=== PATIENT | female | born 1990 | race Caucasian/White ===

== ENCOUNTER 2019-06-22 10:14 | Emergency (ER) | payer SELFPAY | END 2019-06-22 10:55 | disposition home or self-care (01) | LOC: SCSER 10:14 | DX: K02.9 Dental caries, unspecified (principal); F17.210 Nicotine dependence, cigarettes, uncomplicated | CPT/HCPCS: 99282 ==

== ENCOUNTER 2021-10-08 18:32 | Emergency (ER) | payer OTHER, SELFPAY ==
[2021-10-08 19:46] LABS: Bacteria/HPF 4+ HPF (None Seen); Bilirubin Negative (Negative); Blood, Urine 2+ (Negative); Clarity Turbid (Clear); Glucose, Urine (Dipstick) Normal (Negative); Ketone, Urine 10 mg/dL (Negative); Leukocyte 75 Leu/uL (Negative); Mucous/LPF 1+ LPF (<2+); Nitrite 2+ (Negative); Protein, Urine (Dipstick) 70 mg/dL (Neg-Trace); Specific Gravity, Urine 1.021 (1.002-1.036); Urobilinogen Normal mg/dL (Less than 2); pH, Urine 5.5 (5.0-9.0)
[2021-10-08 19:51] LABS: Amphetamine Detected (NotDetected); Barbiturates Screen Not Detected (NotDetected); Benzodiazepine Screen Not Detected (NotDetected); Cocaine Metabolite Screen Not Detected (NotDetected); Methadone Not Detected (NotDetected); Methamphetamine Detected (NotDetected); Opiate Screen Not Detected (NotDetected); Oxycodone Screen Not Detected (NotDetected); Phencyclidine (PCP) Not Detected (NotDetected); THC/Cannabinoid Screen Detected (NotDetected); Tricyclic Screen Not Detected (NotDetected)
[2021-10-08 19:56] LABS: Hemoglobin 10.9 g/dL (12.0-16.0); Mean Corpuscular HGB CONC 31.8 g/dL (32.0-36.0); Mean Corpuscular Hemoglobin 29.5 pg (27.0-31.0); Mean Corpuscular Volume 92.7 fL (78.0-98.0); Mean Platelet Volume 7.3 fL (7.4-10.4); Platelet Count 448 thou/uL (130-400); RBC Distribution Width 15.9 % (11.5-14.5); Red Blood Cell (RBC) Count 3.69 mill/uL (4.20-5.40); White Blood Cell (WBC) Count 22.6 thou/uL (4.8-10.8)
[2021-10-08 19:58] LABS: BHCG - Serum Negative (NEGATIVE); Pregs Control Background? CLEAR/WHITE (CLR/WHITE); Pregs Control Bar Appear? YES (CONTROL BAR)
[2021-10-08 20:18] LABS: Acetaminophen Less than 6.0 mcg/mL (10.0-30.0); Alcohol 38 mg/dL (Less than 10); Magnesium 1.8 mg/dL (1.6-2.6); Salicylate Less than 8.0 mg/dL (15.0-30.0)
[2021-10-08 20:20] LABS: ALT (SGPT) 13 U/L (8-55); AST (SGOT) 19 U/L (5-34); Albumin 3.8 g/dL (3.5-5.0); Alkaline Phosphatase 80 U/L (40-110); Anion Gap 13 mmol/L (10-20); BUN (Urea Nitrogen) 12 mg/dL (7.0-18.7); Bilirubin, Total 0.4 mg/dL (0.2-1.2); Calc. Creatinine Clearance 0 mL/min (70-130); Calcium 9.5 mg/dL (7.8-10.44); Carbon Dioxide 20 mmol/L (22-29); Chloride 111 mmol/L (98-107); Globulin 2.7 g/dL (2.4-3.5); Glucose 70 mg/dL (70-105); Lipase 7 U/L (8-78); Potassium 3.4 mmol/L (3.5-5.1); Protein, Total 6.5 g/dL (6.0-8.3); Sodium 141 mmol/L (136-145)
[2021-10-08 20:34] LABS: Band 7 % (5-11); Burr Cells SLIGHT = 2-5 cells (100X) (0-1/hpf); Elliptocytes SLIGHT = 2-5 cells (100X) (0-1/hpf); Eosinophils 1 % (0-10); Hypochromia SLIGHT = 6-15 cells (100X) (0-5/hpf); Lymphocytes 6 % (21-51); MDiff Complete? YES; Monocytes 3 % (0-10); Neutrophil 83 % (42-75); Platelet Morphology Comment Appears Increased; Polychromasia SLIGHT = 2-3 cells (100X) (0-2/hpf); Tear Drops SLIGHT = 2-5 cells (100X) (0-1/hpf)
[2021-10-08] MEDS ORDERED: cefTRIAXone\\ROCEPHIN 1 GM VIAL ONE (20:34)
[2021-10-08 22:27] LABS: SARS-CoV-2 NAA Rapid Test Not Detected (NotDetected)
[2021-10-09] MEDS ORDERED: hydrOXYzine 25 MG TAB ONE (13:28)
[2021-10-09] MEDS ORDERED: Nicotine 14 MG PATCH ONE (14:32)
== END 2021-10-09 17:58 ==
LOC: ERS 18:32
DX: T43.212A Poisoning by selective serotonin and norepinephrine reuptake inhibitors, intentional self-harm, initial encounter (principal); N39.0 Urinary tract infection, site not specified; Z20.822 Contact with and (suspected) exposure to COVID-19
CPT/HCPCS: 36415; 80053; 80306; 80307; 81003; 81015; 83690; 83735; 84703; 85025; 93005; 96365; 96366; J0696; J1610; U0002

== ENCOUNTER 2022-06-14 23:04 | Day surgery (SDC) | payer OTHER ==
[~2022-06-14 23:04] MED LIST: Iopamidol-370 76% 500 ML 1 ML ONE
[2022-06-14] MEDS ORDERED: Ondansetron PF 4 MG/2 ML Vial ONE (23:16)
[2022-06-14] MEDS ORDERED: Morphine 4 MG/ML VIAL ONE (23:16)
[2022-06-14 23:35] LABS: #Basophils 0.1 thou/uL (0.0-0.2); #Eosinphils 0.2 thou/uL (0.0-0.7); #Lymphocytes 2.8 thou/uL (1.20-3.40); #Monocytes 1.1 thou/uL (0.11-0.59); #Neutrophils 14.6 thou/uL (1.40-6.50); %Basophils 0.5 % (0.0-1.0); %Eosinophils 1.1 % (0.0-10.0); %Lymphocytes 14.6 % (21.0-51.0); %Neutrophils 77.7 % (42.0-75.0); Hemoglobin 12.8 g/dL (12.0-16.0); Mean Corpuscular Hemoglobin 31.9 pg (27.0-31.0); Mean Corpuscular Volume 96.8 fL (78.0-98.0); Mean Platelet Volume 7.4 fL (7.4-10.4); Platelet Count 510 thou/uL (130-400); RBC Distribution Width 15.6 % (11.5-14.5); Red Blood Cell (RBC) Count 4.01 mill/uL (4.20-5.40); White Blood Cell (WBC) Count 18.8 thou/uL (4.8-10.8)
[2022-06-14 23:43] LABS: BHCG - Serum Negative (NEGATIVE); Pregs Control Background? CLEAR/WHITE (CLR/WHITE); Pregs Control Bar Appear? YES (CONTROL BAR)
[2022-06-14 23:57] LABS: ALT (SGPT) 14 U/L (8-55); AST (SGOT) 13 U/L (5-34); Alkaline Phosphatase 75 U/L (40-110); Anion Gap 13 mmol/L (10-20); BUN (Urea Nitrogen) 12 mg/dL (7.0-18.7); Bilirubin, Total 0.2 mg/dL (0.2-1.2); Calc. Creatinine Clearance 0 mL/min (70-130); Calcium 11.1 mg/dL (7.8-10.44); Carbon Dioxide 27 mmol/L (22-29); Chloride 108 mmol/L (98-107); Estimated GFR 97; Globulin 2.6 g/dL (2.4-3.5); Glucose 116 mg/dL (70-105); Lipase 14 U/L (8-78); Potassium 3.6 mmol/L (3.5-5.1); Protein, Total 6.6 g/dL (6.0-8.3); Sodium 144 mmol/L (136-145)
[2022-06-15] MEDS ORDERED: Ketorolac Tromethamine 30 MG/ML VIAL ONE ×2 (00:02→03:20)
[2022-06-15] MEDS ORDERED: Morphine 4 MG/ML VIAL ONE (00:43)
[2022-06-15 01:39] LABS: Bacteria/HPF None Seen HPF (None Seen); Bilirubin Negative (Negative); Blood, Urine 3+ (Negative); Clarity Clear (Clear); Glucose, Urine (Dipstick) Normal (Negative); Ketone, Urine Trace mg/dL (Negative); Leukocyte Negative Leu/uL (Negative); Nitrite Negative (Negative); Protein, Urine (Dipstick) 20 mg/dL (Neg-Trace); RBC/HPF Greater than 50 HPF (0-3); Urobilinogen Normal mg/dL (Less than 2); WBC/HPF 21-50 HPF (0-3); pH, Urine 6.5 (5.0-9.0)
[2022-06-15 01:43] LABS: Specific Gravity, Urine 1.062 (1.002-1.036)
[2022-06-15] MEDS ORDERED: cefTRIAXone\\ROCEPHIN 1 GM VIAL ONE (02:18)
[2022-06-15] MEDS ORDERED: Iopamidol 15 ML ONE (02:21)
[2022-06-15] MEDS ORDERED: fentaNYL Citrate/PF 100 MCG/2 ML SYRINGE ONE (02:38)
[2022-06-15] MEDS ORDERED: Phenylephrine 10 MG/ML VIAL ONE (02:39)
[2022-06-15] MEDS ORDERED: Dexmedetomidine 200 MCG/2 ML VIAL ONE (02:39)
[2022-06-15] MEDS ORDERED: Midazolam HCl 2 mg/2 ml Vial ONE (02:40)
[2022-06-15 03:11] LABS: SARS-CoV-2 NAA Rapid Test Not Detected (NotDetected)
[2022-06-15] MEDS ORDERED: Ondansetron PF 4 MG/2 ML Vial ONE (03:20)
[2022-06-15] MEDS ORDERED: Lidocaine 1% MPF 2 ML VIAL ONE (03:20)
[2022-06-15] MEDS ORDERED: PROPOFOL 200 MG/20 ML VIAL ONE (03:20)
[2022-06-15] MEDS ORDERED: Glycopyrrolate 0.2 MG/ML 5 ML SYRINGE ONE (03:20)
[2022-06-15] MEDS ORDERED: Dexamethasone 20 MG/5 ML VIAL ONE (03:20)
[2022-06-15] MEDS ORDERED: Promethazine HCl 25 MG/ML VIAL ONE (05:03)
[2022-06-15] MEDS ORDERED: hydrALAZINE 20 MG/ML VIAL ONE (05:22)
== END 2022-06-15 07:04 | disposition home or self-care (01) ==
LOC: ERS 23:04 → SDC/OP 06-15 03:28
PROVIDERS: ATTEND Urology
PROC: 0T768DZ Dilation of Right Ureter with Intraluminal Device, Via Natural or Artificial Opening Endoscopic (ICD-10-PCS; principal; 2022-06-15)
DX: N13.2 Hydronephrosis with renal and ureteral calculous obstruction (principal); R82.71 Bacteriuria; R82.81 Pyuria; Z88.2 Allergy status to sulfonamides
CPT/HCPCS: 74177; 74420; 80053; 81003; 81015; 83690; 83970; 84703; 85025; 87086; C2617; J0360; J0696; J1885; J2250; J2270; J2370; J2405; J2550; Q9967; U0002

== ENCOUNTER 2022-06-25 13:45 | Outpatient (CLI) | payer OTHER ==
[2022-06-25 15:00] LABS: BHCG - Serum Negative (NEGATIVE); Pregs Control Bar Appear? YES (CONTROL BAR)
[2022-06-25 15:01] LABS: Anion Gap 11 mmol/L (10-20); BUN (Urea Nitrogen) 11 mg/dL (7.0-18.7); Calc. Creatinine Clearance 0 mL/min (70-130); Calcium 10.4 mg/dL (7.8-10.44); Carbon Dioxide 24 mmol/L (22-29); Chloride 111 mmol/L (98-107); Estimated GFR 105; Glucose 90 mg/dL (70-105); INR-International Normal Ratio 0.9; PTT 29.7 sec (22.0-33.0); Potassium 4.7 mmol/L (3.5-5.1); Pregs Control Background? CLEAR/WHITE (CLR/WHITE); Prothrombin Time 10.3 sec (9.5-12.1); Sodium 141 mmol/L (136-145)
[2022-06-25 15:05] LABS: Hemoglobin 11.9 g/dL (12.0-15.5); Mean Corpuscular HGB CONC 31.6 g/dL (32.0-36.0); Mean Corpuscular Hemoglobin 29.8 pg (27.0-33.0); Mean Platelet Volume 10.4 fl (7.4-10.4); Platelet Count 537 10x3/uL (150-450); RBC Distribution Width 16.6 % (11.5-14.5); White Blood Cell (WBC) Count 12.9 10x3/uL (3.5-10.5)
== END 2022-06-25 13:46 | disposition home or self-care (01) ==
LOC: LABBT 13:45
PROVIDERS: ATTEND Urology
DX: Z01.812 Encounter for preprocedural laboratory examination (principal); N20.1 Calculus of ureter; Z20.822 Contact with and (suspected) exposure to COVID-19
CPT/HCPCS: 80048; 84703; 85027; 85610; 85730; 87086; 87811

== ENCOUNTER 2022-06-26 06:21 | Day surgery (SDC) | payer OTHER ==
[2022-06-25 14:40] VITALS: BMI 21.4
[2022-06-26] MEDS ORDERED: Midazolam HCl 2 mg/2 ml Vial ONE (06:33)
[2022-06-26] MEDS ORDERED: Dexmedetomidine 200 MCG/2 ML VIAL ONE (06:34)
[2022-06-26] MEDS ORDERED: fentaNYL Citrate/PF 100 MCG/2 ML SYRINGE ONE (06:34)
[2022-06-26] MEDS ORDERED: Vancomycin 1 GM/200 ML BAG ONE (06:37)
[2022-06-26] MEDS ORDERED: Sodium Chloride 0.9% 100 ML ONE (06:37)
[2022-06-26] MEDS ORDERED: cefTRIAXone\\ROCEPHIN 1 GM VIAL ONE (06:37)
[2022-06-26] MEDS ORDERED: Iopamidol 30 ML ONE (06:52)
[2022-06-26] MEDS ORDERED: Lidocaine 1% MPF 2 ML VIAL ONE (07:49)
[2022-06-26] MEDS ORDERED: Ondansetron PF 4 MG/2 ML Vial ONE (07:49)
[2022-06-26] MEDS ORDERED: Ketorolac Tromethamine 30 MG/ML VIAL ONE (07:49)
[2022-06-26] MEDS ORDERED: PROPOFOL 200 MG/20 ML VIAL ONE (07:49)
[2022-06-26] MEDS ORDERED: Dexamethasone 20 MG/5 ML VIAL ONE (07:49)
== END 2022-06-26 09:58 | disposition home or self-care (01) ==
LOC: SDC 06:21
PROVIDERS: ATTEND Urology
PROC: 0TP98DZ Removal of Intraluminal Device from Ureter, Via Natural or Artificial Opening Endoscopic (ICD-10-PCS; principal; 2022-06-26)
PROC: BT1D1ZZ Fluoroscopy of Right Kidney, Ureter and Bladder using Low Osmolar Contrast (ICD-10-PCS; principal; 2022-06-26)
DX: N20.1 Calculus of ureter (principal); Z79.899 Other long term (current) drug therapy; Z88.2 Allergy status to sulfonamides
CPT/HCPCS: 74420; 82365; 88300; J0696; J1100; J1885; J2250; J2405; J2704; J3370; J3490; Q9967

== ENCOUNTER 2022-09-11 11:03 | Emergency (ER) | payer OTHER | END 2022-09-11 11:10 | disposition left against medical advice (07) | LOC: ERS 11:03 | DX: Z53.21 Procedure and treatment not carried out due to patient leaving prior to being seen by health care provider (principal) ==

== ENCOUNTER 2022-12-01 11:58 | Observation (INO) | payer OTHER ==
[2022-12-01 12:36] LABS: #Basophils 0.1 thou/uL (0.0-0.2); #Lymphocytes 1.6 thou/uL (1.20-3.40); #Monocytes 2.1 thou/uL (0.11-0.59); #Neutrophils 14.5 thou/uL (1.40-6.50); %Basophils 0.5 % (0.0-1.0); %Eosinophils 0.2 % (0.0-10.0); %Lymphocytes 8.9 % (21.0-51.0); %Monocytes 11.6 % (0.0-10.0); %Neutrophils 78.9 % (42.0-75.0); Hemoglobin 13.1 g/dL (12.0-16.0); Mean Corpuscular HGB CONC 31.8 g/dL (32.0-36.0); Mean Corpuscular Hemoglobin 30.5 pg (27.0-31.0); Platelet Count 468 10x3/uL (130-400); RBC Distribution Width 15.1 % (11.5-14.5); White Blood Cell (WBC) Count 18.4 10x3/uL (4.8-10.8)
[2022-12-01 12:39] LABS: Bacteria/HPF 3+ HPF (None Seen); Bilirubin Negative (Negative); Blood, Urine 2+ (Negative); Clarity Extra Turbid (Clear); Glucose, Urine (Dipstick) Normal (Negative); Ketone, Urine Negative (Negative); Leukocyte 500 Leu/uL (Negative); Nitrite 2+ (Negative); Protein, Urine (Dipstick) 50 mg/dL (Neg-Trace); Specific Gravity, Urine 1.011 (1.002-1.036); Urobilinogen Normal mg/dL (Less than 2); pH, Urine 6.5 (5.0-9.0)
[2022-12-01 12:41] LABS: Pregnancy Test - Urine (BHCG) Negative (Negative); Pregu Control Background? CLEAR/WHITE (CLR/WHITE); Pregu Control Bar Appear? YES (CONTROL BAR); Specific Gravity 1.011 (1.002-1.036)
[2022-12-01] MEDS ORDERED: Ondansetron ODT 4 MG TAB ONE (12:44)
[2022-12-01] MEDS ORDERED: Ketorolac Tromethamine 30 MG/ML VIAL ONE (12:44)
[2022-12-01 12:47] LABS: WBC/HPF 21-50 HPF (0-3)
[2022-12-01 13:00] LABS: ALT (SGPT) 8 U/L (8-55); AST (SGOT) 12 U/L (5-34); Albumin 4.2 g/dL (3.5-5.0); Alkaline Phosphatase 80 U/L (40-110); Anion Gap 11 mmol/L (10-20); BUN (Urea Nitrogen) 6 mg/dL (7.0-18.7); Bilirubin, Total 0.5 mg/dL (0.2-1.2); Calc. Creatinine Clearance 0 mL/min (70-130); Calcium 11.5 mg/dL (7.8-10.44); Carbon Dioxide 24 mmol/L (22-29); Chloride 102 mmol/L (98-107); Estimated GFR 105; Globulin 3.1 g/dL (2.4-3.5); Glucose 85 mg/dL (70-105); Potassium 3.2 mmol/L (3.5-5.1); Protein, Total 7.3 g/dL (6.0-8.3); Sodium 134 mmol/L (136-145)
[2022-12-01] MEDS ORDERED: Morphine 4 MG/ML VIAL ONE (15:13)
[2022-12-01] MEDS ORDERED: cefTRIAXone\\ROCEPHIN 2 GM VIAL ONE (15:13)
[2022-12-01] MEDS ORDERED: Ondansetron PF 4 MG/2 ML Vial IVP PRN (16:21)
[2022-12-01] MEDS ORDERED: Ondansetron ODT 4 MG TAB PO PRN (16:21)
[2022-12-01 16:31] LABS: Bacteria/HPF 1+ HPF (None Seen); Bilirubin Negative (Negative); Blood, Urine 1+ (Negative); Clarity Turbid (Clear); Glucose, Urine (Dipstick) Normal (Negative); Ketone, Urine Negative (Negative); Leukocyte 500 Leu/uL (Negative); Nitrite 1+ (Negative); Protein, Urine (Dipstick) 30 mg/dL (Neg-Trace); Squamous Epithelial 0-3 HPF (0-3); Urobilinogen Normal mg/dL (Less than 2); WBC/HPF Greater than 50 HPF (0-3); pH, Urine 6.5 (5.0-9.0)
[2022-12-01] MEDS ORDERED: Morphine 4 MG/ML VIAL SLOW IVP PRN ×2 (16:32→17:35)
[2022-12-01] MEDS ORDERED: Potassium Chloride 20 MEQ in Premix Bag 2 BAG IVPB SCH (16:45)
[2022-12-01 16:57] LABS: SARS-CoV-2 NAA Rapid Test Not Detected (NotDetected)
[2022-12-01] MEDS: Sodium Chloride 0.9% 1,000 ML IV SCH (17:18)
[2022-12-01] MEDS: Potassium Chloride 20 MEQ in Premix Bag 1 BAG IVPB SCH ×2 (17:18→17:22)
[2022-12-01] MEDS: Ibuprofen 600 MG TAB PO SCH (17:19)
[2022-12-01] MEDS: Acetaminophen 500 MG TAB PO SCH (17:21)
[2022-12-01] MEDS ORDERED: Iopamidol 15 ML ONE (19:32)
[2022-12-01] MEDS ORDERED: fentaNYL PF 100 MCG/2 ML SYRINGE ONE (21:07)
[2022-12-01] MEDS ORDERED: Midazolam HCl 2 mg/2 ml Vial ONE (21:07)
[2022-12-01] MEDS ORDERED: SUGAMMADEX SODIUM 200 MG/2 ML VIAL ONE (21:07)
[2022-12-01] MEDS ORDERED: Fentanyl 100 MCG/2 ML VIAL ONE ×2 (21:17→22:19)
[2022-12-01] MEDS ORDERED: Rocuronium Bromide 10 MG/ML (10ML VIAL) ONE (21:24)
[2022-12-01] MEDS ORDERED: PHENYLEPHRINE-NS 100 MCG/ML 10 ML SYRINGE ONE (21:24)
[2022-12-01] MEDS ORDERED: Lidocaine 1% PF 5 ML VIAL ONE (21:24)
[2022-12-01] MEDS ORDERED: PROPOFOL 200 MG/20 ML VIAL ONE (21:24)
[2022-12-01] MEDS ORDERED: Ondansetron PF 4 MG/2 ML Vial ONE (21:24)
[2022-12-01] MEDS ORDERED: Succinylcholine Chloride 100 MG/5 ML SYRINGE FS ONE (21:24)
[2022-12-01] MEDS ORDERED: Dexamethasone 20 MG/5 ML VIAL ONE (21:24)
[2022-12-01] MEDS ORDERED: Promethazine HCl 25 MG/ML VIAL IM PRN (22:21)
[2022-12-01] MEDS ORDERED: Ondansetron HCl/PF 4 MG/2 ML Vial IVP PRN (22:21)
[2022-12-01] MEDS ORDERED: Meperidine HCl/PF 25 MG/ML VIAL SLOW IVP PRN (22:21)
[2022-12-02] MEDS: Ibuprofen 600 MG TAB PO SCH ×4 (00:11→18:05)
[2022-12-02] MEDS: Acetaminophen 500 MG TAB PO SCH ×4 (00:12→18:06)
[2022-12-02] MEDS: Sodium Chloride 0.9% 1,000 ML IV SCH ×3 (01:32→21:33)
[2022-12-02 07:17] LABS: ALT (SGPT) 7 U/L (8-55); AST (SGOT) 9 U/L (5-34); Albumin 3.6 g/dL (3.5-5.0); Alkaline Phosphatase 66 U/L (40-110); Anion Gap 9 mmol/L (10-20); BUN (Urea Nitrogen) 10 mg/dL (7.0-18.7); Bilirubin, Total 0.2 mg/dL (0.2-1.2); Calc. Creatinine Clearance 0 mL/min (70-130); Calcium 10.1 mg/dL (7.8-10.44); Carbon Dioxide 21 mmol/L (22-29); Chloride 111 mmol/L (98-107); Estimated GFR 117; Globulin 2.6 g/dL (2.4-3.5); Glucose 171 mg/dL (70-105); Potassium 3.8 mmol/L (3.5-5.1); Protein, Total 6.2 g/dL (6.0-8.3); Sodium 137 mmol/L (136-145)
[2022-12-02 07:38] LABS: Hemoglobin 11.6 g/dL (12.0-16.0); Mean Corpuscular Hemoglobin 30.2 pg (27.0-31.0); Mean Corpuscular Volume 97.4 fl (78.0-98.0); RBC Distribution Width 15.4 % (11.5-14.5); Red Blood Cell (RBC) Count 3.84 mill/uL (4.20-5.40)
[2022-12-02 08:58] LABS: Anisocytosis SLIGHT = 6-15 cells (100X) (0-5/hpf); Band 5 % (5-11); Lymphocytes 6 % (21-51); MDiff Complete? YES; Mean Platelet Volume 8.5 fL (7.4-10.4); Monocytes 2 % (0-10); Neutrophil 86 % (42-75); Ovalocytes SLIGHT = 2-5 cells (100X) (0-1/hpf); Platelet Count 357 10x3/uL (130-400); Platelet Morphology Comment Appears Adequate; White Blood Cell (WBC) Count 21.2 10x3/uL (4.8-10.8)
[2022-12-02] MEDS ORDERED: hydrOXYzine Pamoate 25 mg Capsule PO PRN (13:40)
[2022-12-02] MEDS ORDERED: cefTRIAXone\\ROCEPHIN 1 GM in Sodium Chloride 0.9% 100 ML IVPB SCH (15:00)
[2022-12-02] MEDS ORDERED: traZODone HCl 50 MG TAB PO PRN (17:33)
[2022-12-03] MEDS: Acetaminophen 500 MG TAB PO SCH ×3 (01:31→11:55)
[2022-12-03] MEDS: Ibuprofen 600 MG TAB PO SCH ×3 (01:32→11:54)
[2022-12-03] MEDS: Sodium Chloride 0.9% 1,000 ML IV SCH (05:18)
[2022-12-03 05:53] LABS: #Basophils 0.1 thou/uL (0.0-0.2); #Eosinphils 0.1 thou/uL (0.0-0.7); #Lymphocytes 3.3 thou/uL (1.20-3.40); #Neutrophils 12.6 thou/uL (1.40-6.50); %Basophils 0.4 % (0.0-1.0); %Eosinophils 0.7 % (0.0-10.0); %Lymphocytes 19.2 % (21.0-51.0); %Neutrophils 73.6 % (42.0-75.0); Hemoglobin 9.9 g/dL (12.0-16.0); Mean Corpuscular Hemoglobin 31.1 pg (27.0-31.0); Mean Corpuscular Volume 97.2 fl (78.0-98.0); Mean Platelet Volume 8.2 fL (7.4-10.4); Platelet Count 316 10x3/uL (130-400); RBC Distribution Width 15.2 % (11.5-14.5); Red Blood Cell (RBC) Count 3.19 mill/uL (4.20-5.40); White Blood Cell (WBC) Count 17.1 10x3/uL (4.8-10.8)
[2022-12-03 06:38] LABS: ALT (SGPT) 7 U/L (8-55); AST (SGOT) 7 U/L (5-34); Albumin 2.9 g/dL (3.5-5.0); Alkaline Phosphatase 55 U/L (40-110); Anion Gap 4 mmol/L (10-20); BUN (Urea Nitrogen) 10 mg/dL (7.0-18.7); Bilirubin, Total Less than 0.2 mg/dL (0.2-1.2); Calc. Creatinine Clearance 0 mL/min (70-130); Carbon Dioxide 22 mmol/L (22-29); Chloride 119 mmol/L (98-107); Estimated GFR 105; Globulin 2.2 g/dL (2.4-3.5); Glucose 125 mg/dL (70-105); Potassium 3.7 mmol/L (3.5-5.1); Protein, Total 5.1 g/dL (6.0-8.3); Sodium 141 mmol/L (136-145)
[2022-12-03] MEDS ORDERED: Cholecalciferol (Vitamin D3) 400 UNITS TAB PO SCH (09:00)
[2022-12-03 11:39] VITALS: BP 109/73; TEMP 97.7
== END 2022-12-03 14:03 | disposition home or self-care (01) ==
LOC: ERS 11:58 → SURG B 16:51
PROVIDERS: ADMIT Family Medicine; ATTEND Family Medicine
PROC: 0T768DZ Dilation of Right Ureter with Intraluminal Device, Via Natural or Artificial Opening Endoscopic (ICD-10-PCS; principal; 2022-12-01)
DX: N13.6 Pyonephrosis (principal); B96.20 Unspecified Escherichia coli [E. coli] as the cause of diseases classified elsewhere; K59.00 Constipation, unspecified; R79.89 Other specified abnormal findings of blood chemistry; E83.52 Hypercalcemia; R16.0 Hepatomegaly, not elsewhere classified; F17.210 Nicotine dependence, cigarettes, uncomplicated; F12.10 Cannabis abuse, uncomplicated; Z79.899 Other long term (current) drug therapy; Z88.2 Allergy status to sulfonamides; Z20.822 Contact with and (suspected) exposure to COVID-19
CPT/HCPCS: 36415; 74176; 74420; 80053; 81003; 81015; 81025; 82306; 82340; 83605; 83970; 85025; 87040; 87077; 87086; 87186; 96365; 96372; 96375; C1769; C2617; G0378; J0696; J1100; J1885; J2250; J2270; J2405; J2704; J3010; J3480; J3490; J7050; Q0162; Q0177; Q9967; U0002

== ENCOUNTER 2022-12-12 10:02 | Outpatient (CLI) | payer OTHER | END 2022-12-12 10:03 | disposition home or self-care (01) | LOC: LABBT 10:02 | PROVIDERS: ATTEND Urology | DX: Z01.812 Encounter for preprocedural laboratory examination (principal); N20.1 Calculus of ureter | CPT/HCPCS: 87086 ==

== ENCOUNTER 2022-12-18 11:01 | Day surgery (SDC) | payer OTHER ==
[2022-12-17 10:46] VITALS: BMI 24.6
[2022-12-18] MEDS ORDERED: Iopamidol 30 ML ONE (12:47)
[2022-12-18] MEDS ORDERED: Famotidine/PF 20 mg/2ml Vial ONE (12:49)
[2022-12-18] MEDS ORDERED: fentaNYL PF 100 MCG/2 ML SYRINGE ONE ×2 (12:49→14:28)
[2022-12-18] MEDS ORDERED: Levofloxacin 500 mg/D5W 100 ml Premix Bag ONE (13:06)
[2022-12-18 13:21] LABS: BHCG - Serum Negative (NEGATIVE); Pregs Control Background? CLEAR/WHITE (CLR/WHITE); Pregs Control Bar Appear? YES (CONTROL BAR)
[2022-12-18] MEDS ORDERED: Ondansetron PF 4 MG/2 ML Vial ONE (13:26)
[2022-12-18] MEDS ORDERED: Dexamethasone 20 MG/5 ML VIAL ONE (13:26)
[2022-12-18] MEDS ORDERED: Lidocaine 1% PF 5 ML VIAL ONE (13:26)
[2022-12-18] MEDS ORDERED: PHENYLEPHRINE-NS 100 MCG/ML 10 ML SYRINGE ONE (13:26)
[2022-12-18] MEDS ORDERED: Metoclopramide HCl 10 MG/2 ML VIAL ONE (13:26)
[2022-12-18] MEDS ORDERED: PROPOFOL 200 MG/20 ML VIAL ONE (13:26)
[2022-12-18] MEDS ORDERED: Midazolam HCl 2 mg/2 ml Vial ONE (14:07)
== END 2022-12-18 16:37 | disposition home or self-care (01) ==
LOC: SDC 11:01
PROVIDERS: ATTEND Urology
PROC: 0T768DZ Dilation of Right Ureter with Intraluminal Device, Via Natural or Artificial Opening Endoscopic (ICD-10-PCS; principal; 2022-12-18)
PROC: 0TC68ZZ Extirpation of Matter from Right Ureter, Via Natural or Artificial Opening Endoscopic (ICD-10-PCS; principal; 2022-12-18)
DX: N20.1 Calculus of ureter (principal); Z88.2 Allergy status to sulfonamides
CPT/HCPCS: 74420; 84703; J1100; J1956; J2250; J2405; J2704; J2765; Q9967; S0028

== ENCOUNTER 2023-01-18 15:03 | Inpatient (IN) | payer OTHER ==
[~2023-01-18 15:03] MED LIST changes: -Iopamidol-370 76% 500 ML 1 ML ONE; +Iopamidol-370 76% 500 ML MDV (1 ML CHARGE) ONE
[2023-01-18] MEDS ORDERED: Boostrix 0.5 ML (Tdap) VIAL (>/=7 yrs of age) ONE (15:13)
[2023-01-18] MEDS ORDERED: CEFAZOLIN 2 GM VIAL ONE (15:13)
[2023-01-18] MEDS ORDERED: fentaNYL 50 mcg/mL 1 mL Vial ONE (15:18)
[2023-01-18 15:25] LABS: #Basophils 0.1 thou/uL (0.0-0.2); #Eosinphils 0.3 thou/uL (0.0-0.7); #Lymphocytes 5.2 thou/uL (1.20-3.40); #Monocytes 1.4 thou/uL (0.11-0.59); #Neutrophils 12.2 thou/uL (1.40-6.50); %Basophils 0.7 % (0.0-1.0); %Eosinophils 1.4 % (0.0-10.0); %Monocytes 7.2 % (0.0-10.0); %Neutrophils 63.8 % (42.0-75.0); Hemoglobin 12.9 g/dL (12.0-16.0); Mean Corpuscular HGB CONC 33.6 g/dL (32.0-36.0); Mean Platelet Volume 8.5 fL (7.4-10.4); Platelet Count 399 10x3/uL (130-400); RBC Distribution Width 15.3 % (11.5-14.5); Red Blood Cell (RBC) Count 4.03 mill/uL (4.20-5.40); White Blood Cell (WBC) Count 19.1 10x3/uL (4.8-10.8)
[2023-01-18 15:36] LABS: Prothrombin Time 13.5 sec (12.0-14.7)
[2023-01-18 15:37] LABS: PTT 31.8 sec (22.9-36.1)
[2023-01-18] MEDS ORDERED: Morphine 4 MG/ML VIAL ONE (15:41)
[2023-01-18 15:43] LABS: Alcohol Less than 10 mg/dL (Less than 10); Lipase 20 U/L (8-78)
[2023-01-18 15:47] LABS: ALT (SGPT) 20 U/L (8-55); AST (SGOT) 25 U/L (5-34); Albumin 3.9 g/dL (3.5-5.0); Alkaline Phosphatase 84 U/L (40-110); Anion Gap 12 mmol/L (10-20); BUN (Urea Nitrogen) 13 mg/dL (7.0-18.7); Bilirubin, Total 0.3 mg/dL (0.2-1.2); Calc. Creatinine Clearance 0 mL/min (70-130); Calcium 10.2 mg/dL (7.8-10.44); Carbon Dioxide 21 mmol/L (22-29); Chloride 108 mmol/L (98-107); Estimated GFR 105; Globulin 2.6 g/dL (2.4-3.5); Glucose 120 mg/dL (70-105); Potassium 3.6 mmol/L (3.5-5.1); Protein, Total 6.5 g/dL (6.0-8.3); Sodium 137 mmol/L (136-145)
[2023-01-18 16:04] LABS: BHCG - Serum Negative (NEGATIVE); Pregs Control Background? CLEAR/WHITE (CLR/WHITE); Pregs Control Bar Appear? YES (CONTROL BAR)
[2023-01-18] MEDS ORDERED: HYDROmorphone 0.5 MG/0.5 ML SYRINGE ONE ×2 (16:21→17:20)
[2023-01-18] MEDS ORDERED: Dextrose 50% Abboject 50 ML SYRINGE SLOW IVP PRN (16:45)
[2023-01-18] MEDS ORDERED: hydrALAZINE 20 MG/ML VIAL SLOW IVP PRN (16:45)
[2023-01-18] MEDS ORDERED: Ondansetron PF 4 MG/2 ML Vial IVP PRN (16:45)
[2023-01-18] MEDS ORDERED: TETANUS, DIPHTHERIA TOX,ADULT (TDVAX) 0.5 ML VIAL IM ONE (16:45)
[2023-01-18] MEDS ORDERED: Dextrose 5% in Water 1,000 ML IV PRN (16:45)
[2023-01-18] MEDS ORDERED: Sodium Chloride 0.9% 1,000 ML IV SCH (16:45)
[2023-01-18] MEDS ORDERED: diphenhydrAMINE 50 MG/ML VIAL IVP PRN (16:49)
[2023-01-18] MEDS ORDERED: Promethazine HCl 25 MG/ML VIAL IM PRN (16:49)
[2023-01-18] MEDS ORDERED: Naloxone HCl 0.4 mg/ml Vial IV PRN (16:49)
[2023-01-18] MEDS ORDERED: diphenhydrAMINE 25 MG CAP PO PRN (16:49)
[2023-01-18] MEDS ORDERED: diphenhydrAMINE 50 MG/ML VIAL IM PRN (16:49)
[2023-01-18] MEDS ORDERED: Communication Order-Pharmacy FS SCH ×2 (17:00→20:15)
[2023-01-18] MEDS ORDERED: fentaNYL PF 100 MCG/2 ML SYRINGE ONE (17:20)
[2023-01-18] MEDS ORDERED: Ketorolac Tromethamine 30 MG/ML VIAL ONE (17:37)
[2023-01-18] MEDS ORDERED: Bupivacaine HCl 0.5%/Epinephrine 1:200,000/PF 30 ml Vial ONE (17:41)
[2023-01-18] MEDS ORDERED: Neomycin-Polymyxin 1 ML AMP ONE (17:41)
[2023-01-18 17:42] LABS: Actual Bicarbonate (HCO3v) 18 mEq/L (22-28); Base Excess -5.2 mEq/L (-2.0 to +3.0); Calcium, Ionized (venous) 1.18 mmol/L (1.16-1.32); Chloride (VBG) 106 mmol/L (98-106); Hemoglobin (Hb) 14.2 g/dL (11.7-15.5); Potassium (VBG) 3.94 mmol/L (3.70-5.30)
[2023-01-18] MEDS ORDERED: Lidocaine 1% PF 5 ML VIAL ONE (18:24)
[2023-01-18] MEDS ORDERED: Ondansetron PF 4 MG/2 ML Vial ONE (18:24)
[2023-01-18] MEDS ORDERED: Succinylcholine Chloride 100 MG/5 ML SYRINGE FS ONE (18:24)
[2023-01-18] MEDS ORDERED: PROPOFOL 200 MG/20 ML VIAL ONE (18:24)
[2023-01-18] MEDS ORDERED: Dexamethasone 20 MG/5 ML VIAL ONE (18:24)
[2023-01-18] MEDS ORDERED: Rocuronium Bromide 10 MG/ML (10ML VIAL) ONE (18:24)
[2023-01-18] MEDS: Acetaminophen 500 MG TAB PO SCH ×2 (19:27→22:32)
[2023-01-18] MEDS ORDERED: Morphine 4 MG/ML VIAL SLOW IVP PRN (20:01)
[2023-01-18] MEDS ORDERED: Morphine 2 MG/ML VIAL SLOW IVP PRN (20:01)
[2023-01-18] MEDS ORDERED: SUGAMMADEX SODIUM 200 MG/2 ML VIAL ONE (20:01)
[2023-01-18] MEDS ORDERED: HYDROcodone/Acetaminophen 10/325 mg Tablet PO PRN ×2 (20:01)
[2023-01-18] MEDS ORDERED: Midazolam HCl 2 mg/2 ml Vial ONE (20:04)
[2023-01-18] MEDS ORDERED: Promethazine HCl 25 MG/ML VIAL ONE (20:16)
[2023-01-18] MEDS: Famotidine 20 MG TAB PO SCH (22:26)
[2023-01-18] MEDS: Senokot S 8.6-50 MG TAB PO SCH (22:29)
[2023-01-18] MEDS: Gabapentin 300 MG CAP PO SCH (22:30)
[2023-01-18 23:23] VITALS: BMI 26.2
[2023-01-18 23:56] LABS: Lactic Acid 2.9 mmol/L (0.5-2.2)
[2023-01-19] MEDS: CEFAZOLIN 2 GM in Sodium Chloride 0.9% 100 ML IVPB SCH ×2 (00:01→10:40)
[2023-01-19] MEDS: Ketorolac Tromethamine 30 MG/ML VIAL IVP SCH ×4 (00:02→18:32)
[2023-01-19 01:20] LABS: Bacteria/HPF None Seen HPF (None Seen); Bilirubin Negative (Negative); Blood, Urine 2+ (Negative); CAUTI Indications for Culture Pelvic or flank pain; Clarity Clear (Clear); Glucose, Urine (Dipstick) 300 mg/dL (Negative); Ketone, Urine Negative (Negative); Leukocyte Negative Leu/uL (Negative); Nitrite Negative (Negative); Protein, Urine (Dipstick) 10 mg/dL (Neg-Trace); RBC/HPF 0-3 HPF (0-3); Specific Gravity, Urine 1.034 (1.002-1.036); Squamous Epithelial None Seen HPF (0-3); Urobilinogen Normal mg/dL (Less than 2); WBC/HPF 0-3 HPF (0-3); pH, Urine 5.5 (5.0-9.0)
[2023-01-19 01:25] LABS: Urine Culture Reflex No No
[2023-01-19 01:27] LABS: Amphetamine Not Detected (NotDetected); Barbiturates Screen Not Detected (NotDetected); Benzodiazepine Screen Not Detected (NotDetected); Cocaine Metabolite Screen Not Detected (NotDetected); Methadone Not Detected (NotDetected); Methamphetamine Detected (NotDetected); Opiate Screen Detected (NotDetected); Oxycodone Screen Not Detected (NotDetected); Phencyclidine (PCP) Not Detected (NotDetected); THC/Cannabinoid Screen Detected (NotDetected); Tricyclic Screen Not Detected (NotDetected)
[2023-01-19] MEDS: Acetaminophen 500 MG TAB PO SCH ×3 (05:32→18:34)
[2023-01-19 07:32] LABS: Anion Gap 8 mmol/L (10-20); BUN (Urea Nitrogen) 10 mg/dL (7.0-18.7); Calc. Creatinine Clearance 132 mL/min (70-130); Calcium 9.3 mg/dL (7.8-10.44); Carbon Dioxide 19 mmol/L (22-29); Chloride 111 mmol/L (98-107); Estimated GFR 121; Glucose 127 mg/dL (70-105); Magnesium 1.6 mg/dL (1.6-2.6); Phosphorus 1.9 mg/dL (2.3-4.7); Potassium 4.4 mmol/L (3.5-5.1); Sodium 134 mmol/L (136-145)
[2023-01-19] MEDS ORDERED: Magnesium 2 GM/50 ML(in water) 2 GM in Premix Bag 1 BAG IVPB SCH (08:00)
[2023-01-19] MEDS ORDERED: Sodium Phosphate 30 MMOL in Sodium Chloride 0.9% 250 ML 250 ML IVPB SCH (08:00)
[2023-01-19 08:50] LABS: Hemoglobin 10.3 g/dL (12.0-16.0); Mean Corpuscular HGB CONC 30.7 g/dL (32.0-36.0); Mean Corpuscular Hemoglobin 29.7 pg (27.0-31.0); Mean Platelet Volume 8.1 fL (7.4-10.4); Platelet Count 337 10x3/uL (130-400); RBC Distribution Width 15.2 % (11.5-14.5); Red Blood Cell (RBC) Count 3.48 mill/uL (4.20-5.40); White Blood Cell (WBC) Count 29.4 10x3/uL (4.8-10.8)
[2023-01-19 08:53] LABS: Band 21 % (5-11); Hypochromia SLIGHT = 6-15 cells (100X) (0-5/hpf); Lymphocytes 3 % (21-51); MDiff Complete? YES; Monocytes 1 % (0-10); Neutrophil 75 % (42-75); Platelet Morphology Comment Appears Adequate
[2023-01-19] MEDS: Gabapentin 300 MG CAP PO SCH ×3 (10:41→20:10)
[2023-01-19] MEDS: Polyethylene Glycol 3350 17 GM Packet PO SCH (10:41)
[2023-01-19] MEDS: Senokot S 8.6-50 MG TAB PO SCH ×2 (10:42→20:10)
[2023-01-19] MEDS: Famotidine 20 MG TAB PO SCH ×2 (10:42→20:12)
[2023-01-19] MEDS: Bacitracin 1 PK TOP SCH (10:43)
[2023-01-19] MEDS: Cyclobenzaprine 10 MG TAB PO PRN (16:36)
[2023-01-19] MEDS: HYDROmorphone 10 mg/100 ml CADD IVPB PRN (19:48)
[2023-01-20] MEDS: Acetaminophen 500 MG TAB PO SCH ×5 (00:09→23:00)
[2023-01-20] MEDS: Ketorolac Tromethamine 30 MG/ML VIAL IVP SCH ×2 (00:10→05:33)
[2023-01-20 06:59] LABS: #Eosinphils 0.2 thou/uL (0.0-0.7); #Lymphocytes 2.7 thou/uL (1.20-3.40); #Neutrophils 10.5 thou/uL (1.40-6.50); %Basophils 0.1 % (0.0-1.0); %Eosinophils 1.4 % (0.0-10.0); %Lymphocytes 18.8 % (21.0-51.0); %Monocytes 6.9 % (0.0-10.0); %Neutrophils 72.8 % (42.0-75.0); Hemoglobin 8.7 g/dL (12.0-16.0); Mean Corpuscular HGB CONC 31.5 g/dL (32.0-36.0); Mean Corpuscular Hemoglobin 30.5 pg (27.0-31.0); Mean Corpuscular Volume 96.7 fl (78.0-98.0); Mean Platelet Volume 8.4 fL (7.4-10.4); Platelet Count 294 10x3/uL (130-400); Red Blood Cell (RBC) Count 2.86 mill/uL (4.20-5.40); White Blood Cell (WBC) Count 14.5 10x3/uL (4.8-10.8)
[2023-01-20 07:20] LABS: Anion Gap 9 mmol/L (10-20); BUN (Urea Nitrogen) 11 mg/dL (7.0-18.7); Calc. Creatinine Clearance 143 mL/min (70-130); Carbon Dioxide 21 mmol/L (22-29); Chloride 112 mmol/L (98-107); Estimated GFR 123; Glucose 89 mg/dL (70-105); Magnesium 1.8 mg/dL (1.6-2.6); Phosphorus 1.6 mg/dL (2.3-4.7); Potassium 3.7 mmol/L (3.5-5.1); Sodium 138 mmol/L (136-145)
[2023-01-20] MEDS: Polyethylene Glycol 3350 17 GM Packet PO SCH (07:45)
[2023-01-20] MEDS: Senokot S 8.6-50 MG TAB PO SCH ×2 (07:45→22:40)
[2023-01-20] MEDS: Gabapentin 300 MG CAP PO SCH ×3 (07:52→20:57)
[2023-01-20] MEDS: Cyclobenzaprine 10 MG TAB PO PRN ×2 (07:53→18:54)
[2023-01-20] MEDS: Bacitracin 1 PK TOP SCH (07:54)
[2023-01-20] MEDS: Famotidine 20 MG TAB PO SCH ×2 (07:54→20:56)
[2023-01-20] MEDS ORDERED: Ibuprofen 800 MG TAB PO PRN (08:08)
[2023-01-20] MEDS ORDERED: Ibuprofen 200 MG TAB PO PRN (08:38)
[2023-01-20] MEDS ORDERED: Magnesium 2 GM/50 ML(in water) 2 GM in Premix Bag 1 BAG IVPB SCH (09:00)
[2023-01-20] MEDS ORDERED: Potassium Phosphate 30 MMOL in Sodium Chloride 0.9% 250 ML 250 ML IVPB SCH (10:00)
[2023-01-20] MEDS ORDERED: Meperidine HCl/PF 25 MG/ML VIAL SLOW IVP PRN (11:24)
[2023-01-20] MEDS ORDERED: Ondansetron HCl/PF 4 MG/2 ML Vial IVP PRN (11:24)
[2023-01-20] MEDS ORDERED: Promethazine HCl 25 MG/ML VIAL IM PRN (11:24)
[2023-01-20] MEDS ORDERED: Dexmedetomidine 200 MCG/2 ML VIAL ONE (11:41)
[2023-01-20] MEDS ORDERED: Fentanyl 250 MCG/5 ML VIAL ONE (11:41)
[2023-01-20] MEDS ORDERED: Neomycin-Polymyxin 1 ML AMP ONE (11:46)
[2023-01-20] MEDS ORDERED: Bupivacaine/Epinephrine 0.25% 30 ML VIAL ONE (11:46)
[2023-01-20] MEDS ORDERED: CEFAZOLIN 2 GM VIAL ONE (12:00)
[2023-01-20] MEDS ORDERED: Sodium Chloride 0.9% 100 ML ONE (12:00)
[2023-01-20] MEDS ORDERED: ePHEDrine Sulfate 50 MG/10 ML VIAL ONE (12:18)
[2023-01-20] MEDS ORDERED: PROPOFOL 200 MG/20 ML VIAL ONE (12:18)
[2023-01-20] MEDS ORDERED: Ondansetron PF 4 MG/2 ML Vial ONE (12:18)
[2023-01-20] MEDS ORDERED: Rocuronium Bromide 10 MG/ML (10ML VIAL) ONE (12:18)
[2023-01-20] MEDS ORDERED: Dexamethasone 20 MG/5 ML VIAL ONE (12:18)
[2023-01-20] MEDS ORDERED: GLYCOPYRROLATE/PF 0.2 MG/ML VIAL ONE (12:18)
[2023-01-20] MEDS ORDERED: NEOSTIGMINE 3 MG/3 ML SYR 3 MG/3 ML SYRINGE ONE (12:18)
[2023-01-20] MEDS ORDERED: Ketorolac Tromethamine 30 MG/ML VIAL ONE (12:18)
[2023-01-20] MEDS ORDERED: Phenylephrine 10 MG/ML VIAL ONE (12:18)
[2023-01-20] MEDS ORDERED: Tranexamic Acid 1,000 MG/10 ML VIAL ONE (12:49)
[2023-01-20] MEDS ORDERED: Meperidine HCl/PF 25 MG/ML VIAL ONE (14:20)
[2023-01-20] MEDS ORDERED: fentaNYL PF 100 MCG/2 ML SYRINGE ONE (14:35)
[2023-01-20] MEDS ORDERED: TETANUS, DIPHTHERIA TOX,ADULT (TDVAX) 0.5 ML VIAL IM ONE (14:57)
[2023-01-20] MEDS ORDERED: Communication Order-Pharmacy FS SCH (15:00)
[2023-01-20] MEDS ORDERED: Morphine 4 MG/ML VIAL ONE (17:14)
[2023-01-20] MEDS: HYDROmorphone 10 mg/100 ml CADD IVPB PRN (18:39)
[2023-01-20] MEDS ORDERED: Aspirin 81 mg Enteric Coated Tablet PO SCH (21:00)
[2023-01-20] MEDS ORDERED: Potassium Chloride 20 MEQ TAB PO SCH (21:30)
[2023-01-20] MEDS ORDERED: PHOS-NAK 1 PKT PACK PO SCH (21:30)
[2023-01-20] MEDS: CEFAZOLIN 2 GM in Sodium Chloride 0.9% 100 ML IVPB SCH (22:52)
[2023-01-21] MEDS: Acetaminophen 500 MG TAB PO SCH (05:53)
[2023-01-21] MEDS: CEFAZOLIN 2 GM in Sodium Chloride 0.9% 100 ML IVPB SCH (05:57)
[2023-01-21] MEDS ORDERED: Acetaminophen/Codeine 30-300mg Tablet PO PRN (07:53)
[2023-01-21] MEDS ORDERED: Morphine 4 MG/ML VIAL SLOW IVP PRN (07:54)
[2023-01-21] MEDS ORDERED: Acetaminophen/Codeine 30-300mg Tablet PO SCH (09:00)
[2023-01-21 09:22] LABS: Hemoglobin 8.7 g/dL (12.0-16.0); Mean Corpuscular HGB CONC 32.3 g/dL (32.0-36.0); Mean Corpuscular Hemoglobin 31.2 pg (27.0-31.0); Mean Corpuscular Volume 96.7 fl (78.0-98.0); Mean Platelet Volume 8.4 fL (7.4-10.4); Platelet Count 277 10x3/uL (130-400); RBC Distribution Width 15.3 % (11.5-14.5); Red Blood Cell (RBC) Count 2.79 mill/uL (4.20-5.40); White Blood Cell (WBC) Count 23.7 10x3/uL (4.8-10.8)
[2023-01-21 09:38] LABS: Anion Gap 11 mmol/L (10-20); BUN (Urea Nitrogen) 8 mg/dL (7.0-18.7); Calc. Creatinine Clearance 145 mL/min (70-130); Calcium 9.4 mg/dL (7.8-10.44); Carbon Dioxide 19 mmol/L (22-29); Chloride 111 mmol/L (98-107); Estimated GFR 124; Glucose 92 mg/dL (70-105); Phosphorus 1.8 mg/dL (2.3-4.7); Potassium 4.5 mmol/L (3.5-5.1); Sodium 136 mmol/L (136-145)
[2023-01-21] MEDS: Gabapentin 300 MG CAP PO SCH ×3 (10:02→21:25)
[2023-01-21] MEDS: Famotidine 20 MG TAB PO SCH ×2 (10:03→21:25)
[2023-01-21] MEDS: Bacitracin 1 PK TOP SCH (10:03)
[2023-01-21] MEDS: Polyethylene Glycol 3350 17 GM Packet PO SCH (10:03)
[2023-01-21] MEDS: Senokot S 8.6-50 MG TAB PO SCH ×2 (10:03→21:26)
[2023-01-21 10:51] LABS: Band 1 % (5-11); Lymphocytes 14 % (21-51); MDiff Complete? YES; Monocytes 9 % (0-10); Neutrophil 76 % (42-75); Platelet Morphology Comment Appears Adequate; Polychromasia SLIGHT = 2-3 cells (100X) (0-2/hpf)
[2023-01-21] MEDS ORDERED: Sodium Phosphate 30 MMOL in Sodium Chloride 0.9% 250 ML 250 ML IVPB SCH (11:00)
[2023-01-21] MEDS: Acetaminophen/Codeine 30-300mg Tablet PO SCH ×2 (12:20→18:14)
[2023-01-21] MEDS: Acetaminophen 325 MG TAB PO SCH ×2 (12:21→18:18)
[2023-01-22] MEDS: Acetaminophen/Codeine 30-300mg Tablet PO SCH ×2 (00:08→05:40)
[2023-01-22] MEDS: Acetaminophen 325 MG TAB PO SCH ×4 (00:08→14:19)
[2023-01-22] MEDS ORDERED: traZODone HCl 50 MG TAB PO PRN (08:47)
[2023-01-22] MEDS: Bacitracin 1 PK TOP SCH (08:53)
[2023-01-22] MEDS: Famotidine 20 MG TAB PO SCH (08:53)
[2023-01-22] MEDS: Gabapentin 300 MG CAP PO SCH ×2 (08:54→14:20)
[2023-01-22] MEDS: traMADol HCl 50 MG TAB PO SCH ×2 (08:57→14:20)
[2023-01-22] MEDS: Polyethylene Glycol 3350 17 GM Packet PO SCH (08:59)
[2023-01-22] MEDS: Senokot S 8.6-50 MG TAB PO SCH (08:59)
[2023-01-22] MEDS ORDERED: hydrOXYzine Pamoate 25 mg Capsule PO SCH (09:00)
[2023-01-22 10:52] LABS: #Eosinphils 0.4 thou/uL (0.0-0.7); #Lymphocytes 2.8 thou/uL (1.20-3.40); #Monocytes 0.8 thou/uL (0.11-0.59); #Neutrophils 7.5 thou/uL (1.40-6.50); %Basophils 0.4 % (0.0-1.0); %Eosinophils 3.2 % (0.0-10.0); %Lymphocytes 24.2 % (21.0-51.0); %Monocytes 7.3 % (0.0-10.0); Hemoglobin 7.7 g/dL (12.0-16.0); Mean Corpuscular HGB CONC 31.7 g/dL (32.0-36.0); Mean Corpuscular Hemoglobin 31.2 pg (27.0-31.0); Mean Corpuscular Volume 98.2 fl (78.0-98.0); Mean Platelet Volume 7.8 fL (7.4-10.4); Platelet Count 321 10x3/uL (130-400); RBC Distribution Width 15.5 % (11.5-14.5); Red Blood Cell (RBC) Count 2.47 mill/uL (4.20-5.40); White Blood Cell (WBC) Count 11.6 10x3/uL (4.8-10.8)
[2023-01-22 11:08] LABS: Calcium 9.5 mg/dL (7.8-10.44); Chloride 113 mmol/L (98-107); Potassium 3.9 mmol/L (3.5-5.1); Sodium 139 mmol/L (136-145)
[2023-01-22 11:09] LABS: Glucose 94 mg/dL (70-105)
[2023-01-22 11:10] LABS: Anion Gap 9 mmol/L (10-20); Carbon Dioxide 21 mmol/L (22-29)
[2023-01-22 11:12] LABS: Calc. Creatinine Clearance 156 mL/min (70-130); Estimated GFR 126
[2023-01-22 11:13] LABS: BUN (Urea Nitrogen) 12 mg/dL (7.0-18.7)
[2023-01-22 11:14] LABS: Magnesium 1.6 mg/dL (1.6-2.6)
[2023-01-22] MEDS ORDERED: Acetaminophen/Codeine 30-300mg Tablet PO SCH (12:00)
[2023-01-22 12:14] VITALS: BP 117/74; TEMP 97.8
[2023-01-22 22:08] LABS: Phosphorus 2.4 mg/dL (2.3-4.7)
== END 2023-01-22 14:40 | DRG 956 ==
LOC: ERS 15:03 → SJJU 16:48
PROVIDERS: ADMIT Student in an Organized Health Care Education/Training Program; ATTEND Student in an Organized Health Care Education/Training Program
PROC: 0QS806Z Reposition Right Femoral Shaft with Intramedullary Internal Fixation Device, Open Approach (ICD-10-PCS; principal; 2023-01-18)
PROC: 0QS7XZZ Reposition Left Upper Femur, External Approach (ICD-10-PCS; 2023-01-18)
PROC: 0QS504Z Reposition Left Acetabulum with Internal Fixation Device, Open Approach (ICD-10-PCS; 2023-01-20)
DX: S72.351A Displaced comminuted fracture of shaft of right femur, initial encounter for closed fracture (principal); S32.402A Unspecified fracture of left acetabulum, initial encounter for closed fracture; S52.502A Unspecified fracture of the lower end of left radius, initial encounter for closed fracture; S12.690A Other displaced fracture of seventh cervical vertebra, initial encounter for closed fracture; S73.015A Posterior dislocation of left hip, initial encounter; D62 Acute posthemorrhagic anemia; F41.9 Anxiety disorder, unspecified; F31.9 Bipolar disorder, unspecified; F43.10 Post-traumatic stress disorder, unspecified; F17.210 Nicotine dependence, cigarettes, uncomplicated; S00.81XA Abrasion of other part of head, initial encounter; S00.91XA Abrasion of unspecified part of head, initial encounter; E83.39 Other disorders of phosphorus metabolism; S82.62XA Displaced fracture of lateral malleolus of left fibula, initial encounter for closed fracture; S92.352A Displaced fracture of fifth metatarsal bone, left foot, initial encounter for closed fracture; F12.929 Cannabis use, unspecified with intoxication, unspecified; Z98.890 Other specified postprocedural states; Z90.49 Acquired absence of other specified parts of digestive tract; Z88.2 Allergy status to sulfonamides; V59.9XXA Occupant (driver) (passenger) of pick-up truck or van injured in unspecified traffic accident, initial encounter; Y92.89 Other specified places as the place of occurrence of the external cause
CPT/HCPCS: 36415; 70450; 70486; 71045; 71260; 72125; 72170; 74177; 80048; 80053; 80306; 80307; 81001; 82805; 83605; 83690; 83735; 84100; 84703; 85025; 85610; 85730; 90715; 96374; 96375; C1713; C1769; G0390; J1100; J1170; J1885; J2175; J2250; J2270; J2370; J2405; J2550; J2704; J3010; J3475; J3490; J7050; Q0177; Q9967

== ENCOUNTER 2023-02-02 02:14 | Outpatient (CLI) | payer OTHER | END 2023-02-02 02:15 | disposition home or self-care (01) | LOC: RAD 02:14 | PROVIDERS: ATTEND Physical Medicine & Rehabilitation | DX: T07.XXXD Unspecified multiple injuries, subsequent encounter (principal) | CPT/HCPCS: 72040 ==